=== PATIENT | male | born 1965 | race Caucasian/White ===

== ENCOUNTER 2017-12-02 06:08 | Day surgery (SDC) | payer BC ==
[~2017-12-02] VITALS: Ht 177.8 cm; Wt 95.3 kg
[2017-12-02 07:49] VITALS: BP 110/60
== END 2017-12-02 08:00 | disposition home or self-care (01) | DRG 951 ==
LOC: ENDO 06:08
PROVIDERS: ATTEND Surgery
PROC: 0DJD8ZZ Inspection of Lower Intestinal Tract, Via Natural or Artificial Opening Endoscopic (ICD-10-PCS; principal; 2017-12-02)
DX: Z12.11 Encounter for screening for malignant neoplasm of colon (principal); K64.4 Residual hemorrhoidal skin tags

== ENCOUNTER 2018-07-22 12:13 | Emergency (ER) | payer BC ==
[~2018-07-22] VITALS: Ht 177.8 cm; Wt 100.0 kg
[2018-07-22 13:26] LABS: HEMATOCRIT 44.7 % (39.0-50.0); HEMOGLOBIN 14.8 g/dl (14.0-18.0); IMMATURE GRANULOCYTES 0.4 % (0.0-5.0); MEAN CELL VOLUME 86.6 fL CALC (80.0-100.0); MEAN CORPUSCULAR HGB 28.7 pG CALC (26.0-32.0); MEAN CORPUSCULAR HGB CONC 33.1 g/L CALC (32.0-36.0); NEUT# 4.28 thou/uL (1.82-7.42); RED BLOOD COUNT 5.16 mill/uL (4.70-6.10); RED CELL DISTRI WIDTH 12.6 % (11.5-15.5)
[2018-07-22 13:40] LABS: ALBUMIN 4.4 g/dL (3.2-5.0); ALKALINE PHOSPHATASE 60 u/l (38-126); ANION GAP 15 (6-22 (CALC)); BILIRUBIN, TOTAL 0.8 mg/dL (0.0-1.4); BUN 19 mg/dL (9-20); BUN/CREATININE RATIO 17 (12-20 (CALC)); CARBON DIOXIDE 27 mmol/l (22-30); CHLORIDE 100 mmol/l (95-108); CREATININE 1.1 mg/dL (0.7-1.3); GFR > 60 ML/MIN (>=60 (CALC)); GFR FOR AFR.AMER. > 60 ML/MIN (>=60 (CALC)); LIPASE 34 u/l (23-300); POTASSIUM 4.5 mmol/l (3.5-5.1); SGOT/AST 30 u/l (17-59); SODIUM 138 mmol/l (137-146); TOTAL PROTEIN 7.3 g/dL (6.3-8.2)
[2018-07-22 13:50] LABS: MYOGLOBIN 31 ng/mL (0 - 121)
[2018-07-22 15:29] LABS: URINE BILIRUBIN - DIPSTICK NEGATIVE (NEGATIVE); URINE BLOOD DIPSTICK NEGATIVE (NEGATIVE); URINE COLOR YELLOW; URINE GLUCOSE - DIPSTICK NEGATIVE (NEGATIVE); URINE KETONE NEGATIVE (NEGATIVE); URINE LEUK ESTERASE NEGATIVE (NEGATIVE); URINE NITRITE - DIPSTICK NEGATIVE (Negative); URINE PH 5.5 (4.5-8.0); URINE PROTEIN - DIPSTICK NEGATIVE (NEG-TRACE); URINE SPECIFIC GRAVITY 1.025; URINE UROBILINOGEN - DIPSTICK 0.2 E.U./dL (0.2)
[2018-07-22 17:16] VITALS: BP 151/88
[2018-07-22] MEDS ORDERED: PROTONIX40 M2 PO (17:16)
== END 2018-07-22 17:31 | disposition home or self-care (01) | DRG 313 ==
LOC: ED 12:13
PROVIDERS: Emergency Medicine
DX: R07.9 Chest pain, unspecified (principal)

== ENCOUNTER → 2018-08-11 | Outpatient (REF) | payer BC ==
[~2018-08-11] MED LIST: PROTONIX40 M2 PO
== END | disposition home or self-care (01) | DRG 311 ==
LOC: STRESS 13:26 → NUCMED 13:30
PROVIDERS: ATTEND Internal Medicine
DX: I20.8 Other forms of angina pectoris (principal)
CPT/HCPCS: A9502

== ENCOUNTER 2020-09-22 13:45 | Emergency (ER) | payer BC ==
[2020-09-22] MEDS ORDERED: AMOX/K CLAV875 M1 PO (14:41)
[2020-09-22 15:12] VITALS: BP 139/65
== END 2020-09-22 15:12 | disposition home or self-care (01) | DRG 159 ==
LOC: ED 13:45
PROC: 0CQ0XZZ Repair Upper Lip, External Approach (ICD-10-PCS; principal; 2020-09-22)
DX: S01.511A Laceration without foreign body of lip, initial encounter (principal); W20.8XXA Other cause of strike by thrown, projected or falling object, initial encounter; Y93.89 Activity, other specified

== ENCOUNTER 2020-09-28 14:20 | Emergency (ER) | payer BC ==
[~2020-09-28 14:20] MED LIST changes: +AMOX/K CLAV875 M1 PO
[2020-09-28 14:47] VITALS: BP 132/78
== END 2020-09-28 14:47 | disposition home or self-care (01) | DRG 950 ==
LOC: ED 14:20
DX: S01.511D Laceration without foreign body of lip, subsequent encounter (principal); X58.XXXD Exposure to other specified factors, subsequent encounter

== ENCOUNTER 2024-02-18 17:48 | Emergency (ER) | payer BC ==
[~2024-02-18] VITALS: Ht 177.8 cm; Wt 99.0 kg
[2024-02-18] MEDS ORDERED: LIDOcaine HCl 1% (Local Anesth.) 20 ML VIAL STI STA (17:56)
[2024-02-18 17:57] VITALS: BP 127/91
[2024-02-18 18:00] VITALS: BP 144/87
[2024-02-18] MEDS ORDERED: NEOMYCIN-BACITRACIN-POLYMYXIN 0.5 GM/PAK PAK TOP ONE (18:00)
[2024-02-18] MEDS ORDERED: POVIDONE IODINE 0.5 OZ/BTL TOP ONE (18:00)
[2024-02-18] MEDS ORDERED: SODIUM CHLORIDE 500 ML BTL IR ONE (18:00)
[2024-02-18] MEDS ORDERED: KEFLEX500 MG PO (18:25)
[2024-02-18 18:30] VITALS: BP 121/75
[2024-02-18 18:53] VITALS: BP 121/75
== END 2024-02-18 18:41 | disposition home or self-care (01) | DRG 605 ==
LOC: ED 17:48
DX: S51.811A Laceration without foreign body of right forearm, initial encounter (principal); W26.0XXA Contact with knife, initial encounter